=== PATIENT | male | born 1945 | race Caucasian/White ===

== ENCOUNTER 2021-12-26 13:06 | Outpatient (CLI) | payer MEDICARE, BC, SELFPAY | END 2021-12-30 09:36 | disposition home or self-care (01) | LOC: PHYS 13:09 | PROVIDERS: Family Provider Family Medicine; PCP Family Medicine; Referring Provider Family Medicine; Visit Provider Family Medicine | DX: G56.13 Other lesions of median nerve, bilateral upper limbs (principal) | CPT/HCPCS: 95886; 95911 ==